=== PATIENT | female | born 1950 | race Caucasian/White ===

== ENCOUNTER 2024-04-05 17:45 | Observation (INO) ==
[2024-04-05] MEDS ORDERED: IOPAMIDOL 100 ML BOTTLE IV ONE (17:46)
[2024-04-05] MEDS: 0.9 % SODIUM CHLORIDE 250 ML IV SCH (18:04)
[2024-04-05 18:31] LABS: Basophils # (Auto) 0.04 K/mcL (0.00-0.30); Basophils % (Auto) 0.5 % (0.0-2.0); Eosinophils # (Auto) 0.08 K/mcL (0.00-0.70); Hematocrit 32.8 % (34.1-44.9); Hemoglobin 10.7 g/dL (11.2-15.7); Lymphocytes # (Auto) 1.07 K/mcL (1.50-4.80); Lymphocytes % (Auto) 12.9 % (15.5-49.0); Mean Cell Volume 95.9 fL (80.0-100.0); Mean Corpuscular HGB Conc 32.6 g/dL (31.0-36.0); Monocytes % (Auto) 10.9 % (1.0-12.0); Neutrophils % (Auto) 74.2 % (38.0-78.0); Platelet Count 300 K/mcL (140-440); RBC 3.42 M/mcL (3.59-5.38); Red Cell Distribution Width 12.6 % (11.5-14.5); WBC 8.3 K/mcL (4.5-11.0)
[2024-04-05 18:42] LABS: ALT/SGPT 12 U/L (<40); AST/SGOT 31 U/L (<32); Albumin 4.1 gm/dL (3.2-5.2); Albumin/Globulin Ratio 1.7 (1.0-2.3); Alkaline Phosphatase 97 U/L (39-117); Bilirubin,Total 0.3 mg/dL (0.1-1.0); Blood Urea Nitrogen 12 mg/dL (8-23); Calcium 8.8 mg/dL (8.6-10.4); Carbon Dioxide 18 mmol/L (22-30); Chloride 93 mmol/L (96-108); Globulin 2.4 gm/dL (2.2-3.7); Glomerular Filtration Rate 90; Glucose 135 mg/dL (70-105); Sodium 126 mmol/L (133-145)
[2024-04-05] MEDS: fentaNYL 100 MCG/2 ML VIAL IV ONE (19:11)
[2024-04-05] MEDS: ONDANSETRON 4 MG/2 ML VIAL IV ONE (19:25)
[2024-04-05 19:57] LABS: Prothrombin Time 13.3 sec (11.9-14.5)
[2024-04-05] MEDS: 0.9 % SODIUM CHLORIDE 500 ML IV ONE (20:27)
[2024-04-05] MEDS ORDERED: ACETAMINOPHEN 325 MG TABLET PO PRN (21:49)
[2024-04-05] MEDS ORDERED: ALBUTEROL SULFATE 2.5 MG/3 ML NEBULIZER NEB PRN (21:49)
[2024-04-05] MEDS ORDERED: ONDANSETRON 4 MG/2 ML VIAL IV PRN (21:49)
[2024-04-05] MEDS: SENNOSIDES 1 TABLET PO SCH (23:18)
[2024-04-05] MEDS: DOCUSATE SODIUM 100 MG CAPSULE PO SCH (23:18)
[2024-04-05] MEDS: 0.9 % SODIUM CHLORIDE 10 ML SYRINGE IV SCH (23:19)
[2024-04-05] MEDS: KETOROLAC 15 MG/ML VIAL IV PRN (23:55)
[2024-04-05] MEDS ORDERED: KETOROLAC 15 MG/ML VIAL ONE (23:55)
[2024-04-06] MEDS ORDERED: KETOROLAC 15 MG/ML VIAL ONE (05:48)
[2024-04-06 06:52] LABS: Blood Urea Nitrogen 11 mg/dL (8-23); Calcium 8.3 mg/dL (8.6-10.4); Carbon Dioxide 23 mmol/L (22-30); Chloride 96 mmol/L (96-108); Glomerular Filtration Rate 90; Glucose 100 mg/dL (70-105); Potassium 4.6 mmol/L (3.3-5.1); Sodium 127 mmol/L (133-145)
[2024-04-06 06:54] LABS: Basophils # (Auto) 0.02 K/mcL (0.00-0.30); Basophils % (Auto) 0.3 % (0.0-2.0); Eosinophils # (Auto) 0 K/mcL (0.00-0.70); Eosinophils % (Auto) 0 % (0.0-7.0); Hematocrit 29.4 % (34.1-44.9); Hemoglobin 9.7 g/dL (11.2-15.7); Lymphocytes # (Auto) 0.54 K/mcL (1.50-4.80); Lymphocytes % (Auto) 8.8 % (15.5-49.0); Mean Cell Volume 96.7 fL (80.0-100.0); Mean Platelet Volume 10.3 fL (8.8-12.5); Monocytes # (Auto) 0.55 K/mcL (0.10-0.90); Monocytes % (Auto) 8.9 % (1.0-12.0); Neutrophils % (Auto) 81.8 % (38.0-78.0); Platelet Count 255 K/mcL (140-440); RBC 3.04 M/mcL (3.59-5.38); Red Cell Distribution Width 12.6 % (11.5-14.5); WBC 6.2 K/mcL (4.5-11.0)
[2024-04-06] MEDS: SODIUM CHLORIDE 1 GM TABLET PO SCH (20:32)
[2024-04-06] MEDS: ATORVASTATIN 40 MG TABLET PO SCH (20:32)
[2024-04-07 00:25] LABS: Iron 67 ug/dL (37-145); TIBC Calculation 222 ug/dl (228-428); Transferrin % Saturation 30 % (15-50)
[2024-04-07] MEDS ORDERED: KETOROLAC 15 MG/ML VIAL ONE (04:49)
[2024-04-07 06:45] LABS: Basophils # (Auto) 0.02 K/mcL (0.00-0.30); Basophils % (Auto) 0.4 % (0.0-2.0); Eosinophils # (Auto) 0.04 K/mcL (0.00-0.70); Eosinophils % (Auto) 0.9 % (0.0-7.0); Hematocrit 28.8 % (34.1-44.9); Hemoglobin 9.4 g/dL (11.2-15.7); Lymphocytes # (Auto) 0.56 K/mcL (1.50-4.80); Lymphocytes % (Auto) 11.9 % (15.5-49.0); Mean Cell Volume 97.6 fL (80.0-100.0); Mean Corpuscular HGB Conc 32.6 g/dL (31.0-36.0); Mean Platelet Volume 10.1 fL (8.8-12.5); Monocytes # (Auto) 0.62 K/mcL (0.10-0.90); Monocytes % (Auto) 13.2 % (1.0-12.0); Neutrophils % (Auto) 73.6 % (38.0-78.0); Platelet Count 241 K/mcL (140-440); RBC 2.95 M/mcL (3.59-5.38); Red Cell Distribution Width 13.1 % (11.5-14.5); WBC 4.7 K/mcL (4.5-11.0)
[2024-04-07 06:47] LABS: Blood Urea Nitrogen 13 mg/dL (8-23); Calcium 8.4 mg/dL (8.6-10.4); Carbon Dioxide 25 mmol/L (22-30); Chloride 98 mmol/L (96-108); Glomerular Filtration Rate 96; Glucose 102 mg/dL (70-105); Potassium 4.5 mmol/L (3.3-5.1); Sodium 130 mmol/L (133-145)
[2024-04-07] MEDS: CLOPIDOGREL 75 MG TABLET PO SCH (08:33)
[2024-04-07] MEDS: METOPROLOL SUCCINATE 50 MG TAB.XL.24H PO SCH (08:33)
[2024-04-07] MEDS: VITAMIN D3 125 MCG TABLET PO SCH (08:34)
== END 2024-04-07 13:28 | disposition home or self-care (01) ==
LOC: ED 17:45 → MEDSUR 17:45
PROVIDERS: ADMIT Internal Medicine; ATTEND Internal Medicine